=== PATIENT | female | born 1970 | race Caucasian/White ===

== ENCOUNTER 2018-11-09 13:11 | Emergency (ER) | payer OTHER, SELFPAY ==
[2018-11-09 13:38] VITALS: BP 110/67; PULSE 74; RESP 16; TEMP 37; O2SAT 100
[2018-11-09] MEDS: Acetaminophen 325 MG TAB (14:22)
--- NOTE | 2018-11-09 14:34 | DI.RAD_ITS ---
SYMPTOM/DIAGNOSIS: TRAUMA, PAIN RIGHT TIBIA AND FIBULA: There is a nondisplaced fracture of the distal fibula. No additional fractures are seen more proximally. The knee is unremarkable. There is a question of mild ankle mortise widening. There is mild alcon-articular spurring. IMPRESSION: Distal fibular fracture and mild medial ankle mortise widening. RIGHT ANKLE: There is soft tissue swelling around the malleoli. There is an oblique fracture extending through the lateral malleolus through the level of the ankle mortise. There is mild medial ankle mortise widening. No medial malleolar fracture or talar dome defect is seen. There is mild alcon-articular spurring. There is a plantar calcaneal spur. IMPRESSION: Lateral malleolar fracture and mild medial ankle mortise widening.
--- NOTE | 2018-11-09 15:47 | W.ED.GENAD ---
Discharge Plan Disposition Patient Disposition: HOME Condition: Stable Discharge Details Chief Complaint: Orthopedic Clinical Impression: Fibula fracture Reason For Visit: right ankle injury Primary Care Provider: Unknown,Unknown ED Provider: Lily Salazar Home Meds and New Rx's Prescriptions: Continued multivitamin Tablet 1 tab PO DAILY RF: 0 levothyroxine [Synthroid] 137 mcg Tablet 137 mcg PO DAILY RF: 0 cholecalciferol (vitamin D3) [Vitamin D3] 1,000 unit Tablet,Chewable 2,000 mg PO DAILY RF: 0 Discharge Instructions Instructions: Leg Fracture (ED), Crutch Instructions (ED) Additional Instructions: Please return immediately to the emergency department if you develop any new or worsening symptoms or if you become otherwise concerned. It is extremely important that you make an appointment to be seen by an orthopedic surgeon in follow-up this visit as soon as possible, Referrals: Rony Oreilly MD [ [facility]FF PHYSICIAN] - Discharge Data Discharge Date/Time-TO BE ENTERED AT DEPARTURE: 11/09/18 15:58 Medical Decision Making Nilsa Law is a 48-year-old woman presenting to the emergency department with right ankle pain that occurred while skiing in deep snow just prior to arrival, worse with weightbearing. On exam patient has tenderness over the right lateral malleolus. Right foot is neurovascularly intact. Benign exam of the right proximal lower leg and knee. Extremities otherwise atraumatic. Concern for right ankle fracture versus sprain, doubt maisonneuve. Exam/history is not consistent with significant intracranial, cervical, thoracic right foot or other extremity injury. X-rays right ankle, right tib fib. X-rays show right distal fibula fracture with concern for widening of the mortise. I discussed patient presentation results with the orthopedic surgeon on-call, who recommended walking boot, weightbearing as tolerated, outpatient follow-up with orthopedics for further evaluation. I discussed this plan with the patient, who prefers to follow-up with orthopedic surgeon in her home state this week when she returns from vacation. I had a lengthy discussion with the patient regarding return to emergency department precautions and importance of outpatient follow-up with orthopedics and her primary care doctor soon as possible. Patient verbalizes understanding of the plan and is amenable. Imaging Data Radiologic Study: Attestation: I personally reviewed and interpreted this imaging study as follows: Radiologist's impression: RIGHT TIBIA AND FIBULA: There is a nondisplaced fracture of the distal fibula. No additional fractures are seen more proximally. The knee is unremarkable. There is a question of mild ankle mortise widening. There is mild alcon-articular spurring. IMPRESSION: Distal fibular fracture and mild medial ankle mortise widening. RIGHT ANKLE: There is soft tissue swelling around the malleoli. There is an oblique fracture extending through the lateral malleolus through the level of the ankle mortise. There is mild medial ankle mortise widening. No medial malleolar fracture or talar dome defect is seen. There is mild alcon-articular spurring. There is a plantar calcaneal spur. IMPRESSION: Lateral malleolar fracture and mild medial ankle mortise widening. HPI General Date/Time Provider Initiated Documentation: 11/09/18 14:11. Limitations to Documentation: no limitations. Information obtained by: patient, family, RN notes reviewed and old records reviewed. HPI Narrative: Nilsa Law is a 8-year-old woman with history of hypothyroidism and benign brain tumors in the past presenting to the emergency department with right ankle pain. Patient reports that she was skiing in a [place] in deep snow today when she went to turn and twisted her ankle, hearing a pop. Patient tried to ski out [place] the [place], but had significant pain with weightbearing. Patient reports she has continued right ankle pain that is relatively mild, worse with weightbearing. She denies any other pain or injury. Patient reports that she did not fall, did not hit her head. It was previously in her usual state of health. Patient is here on vacation lives out of state, planning to return home in the next few days. Related Data Home Medications Medication Instructions Recorded Confirmed cholecalciferol (vitamin D3) 2,000 mg PO DAILY 11/09/18 11/09/18 [Vitamin D3] levothyroxine [Synthroid] 137 mcg PO DAILY 11/09/18 11/09/18 multivitamin 1 tab PO DAILY 11/09/18 11/09/18 Allergies Allergy/AdvReac Type Severity Reaction Status Date / Time ppg injection Allergy Uncoded 11/09/18 13:41 morphine AdvReac Uncoded 11/09/18 13:41 General Stated Complaint: Orthopedic SPEEDY: 4 Review of Systems Review of Systems Constitutional: denies fevers Eyes: denies eye pain ENT: denies facial pain, dental pain, sore throat Cardiovascular: denies chest pain Respiratory: denies SOB, cough GI: denies abdominal pain, vomiting, diarrhea : denies flank pain MSK: denies back pain, neck pain, reports right ankle pain no other arthralgias Skin: denies rash, wound Neuro: denies headaches, numbness, weakness PFSH Social History Smoking and Tabacco status: Never Exam Narrative Exam Narrative: Constitutional: well and [id number], pleasant, conversing normally HENT: head atraumatic/normocephalic/normal inspection, mucous membranes moist Eyes: conjunctiva normal, sclera normal, pupils 3mm b/l Neck: no stridor, normal ROM, trachea midline Resp: normal work of breathing, LCTAB Cardio: normal rate, normal rhythm, no murmur appreciated Skin: warm, dry, normal color, no rash Neuro: alert, not altered, grossly non-focal, normal tone Ext: Right ankle with mild edema over the lateral malleolus, lateral malleolus tender to palpation. No tenderness of the proximal fibula or tibia. No tenderness of the medial right malleolus. Range of motion right ankle limited secondary to pain. DP pulses intact and symmetric. Brisk cap refill in the toes. Normal sensory exam of the right foot. Full range of motion of the right knee. Extremities otherwise atraumatic. Psych: normal mood, normal affect, normal behavior Course Vital Signs Temperature 37 C 11/09/18 13:38 Pulse 74 11/09/18 13:38 Respiratory Rate 16 11/09/18 13:38 Blood Pressure 110/67 11/09/18 13:38 Pulse Oximetry 100 11/09/18 13:38 Temperature 37 C 11/09/18 13:38 Temperature Source Skin 11/09/18 13:38 Pulse 74 11/09/18 13:38 Respiratory Rate 16 11/09/18 13:38 Respiratory Effort Non-Labored 11/09/18 13:38 Blood Pressure 110/67 11/09/18 13:38 Blood Pressure Position Sitting 11/09/18 13:38 Pulse Oximetry 100 11/09/18 13:38 Oxygen Delivery Method Room Air 11/09/18 13:38 Oxygen Flow Rate 0 11/09/18 13:38 Pain Level 5 11/09/18 14:22
== END 2018-11-09 15:58 | disposition home or self-care (01) ==
PROVIDERS: Emergency Provider Student in an Organized Health Care Education/Training Program
DX: S82.64XA Nondisplaced fracture of lateral malleolus of right fibula, initial encounter for closed fracture (principal); V00.321A Fall from snow-skis, initial encounter
CPT/HCPCS: 27786; 73590; 73610; E0114; L4361